=== PATIENT | male | born 1990 | race Caucasian/White ===

== ENCOUNTER 2016-11-06 13:34 | Emergency (ER) | payer OTHER ==
[~2016-11-06] VITALS: Ht 167.6 cm; Wt 124.5 kg
[~2016-11-06 13:34] MED LIST: FLEXERIL10 MG PO; HYDROCODON-ACE1 EAC7 PO; MOTRIN800 MG PO; NAPROSYN500 MG PO; NO HOME MEDS; NOHOMEMEDS; VICODIN,LORT1 TABLET PO
[2016-11-06 14:30] LABS: EOSINOPHIL (%) 1.6 % (0-5); EOSINOPHIL COUNT 0.1 K/uL (0-0.3); HEMATOCRIT 41.6 % (38.0-50.0); IMMATURE GRANULOCYTE (%) 0.6 % (0.0-0.7); IMMATURE GRANULOCYTE COUNT 0.4 K/uL; LYMPHOCYTE COUNT 2.1 K/uL (1.0-2.8); MCH 32.2 PG (29.0-34.0); MCHC 35.6 G/DL (30.0-36.0); MCV 90.6 FL (86-99); MEAN PLAT.VOLUME 9.7 uM^3 (9.0-12.4); MONOCYTE (%) 8.4 % (3-12); MONOCYTE COUNT 0.6 K/uL (0-0.8); NEUTROPHIL (%) 58.9 % (45-76); NEUTROPHIL COUNT 4.1 K/uL (1.8-6.4); PLATELET COUNT 343 K/uL (156-360); RBC DIS.WIDTH-CV 11.8 % (11.8-14.6); RBC DIS.WIDTH-SD 38.4 % (39-53); RED BLOOD COUNT 4.59 M/uL (4.00-5.50); WHITE BLOOD COUNT 6.9 K/uL (4.1-10.2)
[2016-11-06 14:42] LABS: CHLORIDE 107 mEq/L (99-109); POTASSIUM 3.8 mEq/L (3.7-5.4); SODIUM 141 mEq/L (136-147)
[2016-11-06 14:43] LABS: GLUCOSE 131 mg/dL (70-99)
[2016-11-06 14:44] LABS: D-DIMER ELISA 0.18 mg/L FEU (< 0.57)
[2016-11-06 14:45] LABS: ANION GAP 10 MEQ/L (2-14)
[2016-11-06 14:47] LABS: GFR ESTIMATE (CALCULATED) > 59 mL/min/
[2016-11-06 14:48] LABS: UREA NITROGEN (BUN) 17 mg/dL (9-23)
[2016-11-06 14:50] LABS: CREATINE KINASE 152 IU/L (1-294)
[2016-11-06 14:52] LABS: TROP-I INTERPRETATION NEGATIVE; TROPONIN-I < 0.01 ng/mL (0.0-0.30)
[2016-11-06 17:32] LABS: TROP-I INTERPRETATION NEGATIVE; TROPONIN-I < 0.01 ng/mL (0.0-0.30)
[2016-11-06 19:26] VITALS: BP 125/68
== END 2016-11-06 19:27 | disposition home or self-care (01) ==
LOC: EME 13:34
PROVIDERS: Emergency Medicine
DX: R07.9 Chest pain, unspecified (principal); J45.909 Unspecified asthma, uncomplicated; Z87.891 Personal history of nicotine dependence
CPT/HCPCS: 71020; 80048; 82550; 84484; 85025; 85379; 93005; 99281; 99285